=== PATIENT | female | born 1960 | race Caucasian/White ===

== ENCOUNTER 2018-05-01 08:56 | Observation (INO) | payer OTHER ==
[~2018-05-01] VITALS: Ht 157.5 cm; Wt 117.7 kg
[~2018-05-01 08:56] MED LIST: ALBUTEROL; ALBUTEROL NEBULIZER; AZO STANDARD; B-COMPLEX PO; CINNAMON500 MG PO; DITROPAN XL5 MG PO; GABAPENTIN300 MG PO; GLIPIZIDE5 MG PO; IMITREX INJ; KETOROLAC TROME10 MG; KETOROLAC TROME10 MG PO; LEVAQUIN500 MG PO; LEVOTHYROXINE112 MCG PO; LOSARTAN POTASS25 MG PO; NEXIUM40 MG PO; NORCO 10-325 T1 EACH PO; NORCO 5-325 TA1 EACH PO; NP THYROID90 MG PO; OMEPRAZOLE40 MG PO; ONDANSETRON HCL4 MG PO; PERCOCET PO; RANITIDINE PO; SENSIPAR30 MG PO; STOOL SOFTENER; SUDAFED; SUMATRIPTAN SUC25 MG PO; SUPER B COMPLE150 MG PO; SYNTHROID50 MCG PO; TIZANIDINE HCL4 M1 PO; TYLENOL # 31 EA PO; TYLENOL WITH C1 EACH PO; ULTRACET TABLE1 EACH PO; VITAMIN B 12 PO; VITAMIN D1000 UNI1 PO; VITAMIN D250000 UNIT PO; VITAMIN D31000 UNI1 PO; ZOFRAN ODT4 MG; [UNRECOGNIZED DRUG - OTHER]; [UNRECOGNIZED DRUG - OTHER] PO
[2018-05-01 10:23] LABS: BASOPHILS % 0.4 % (0.0-1.0); EOSINOPHILS % 0.2 % (0.0-6.0); HEMATOCRIT 44.5 % (34.2-44.1); HEMOGLOBIN 14.7 g/dL (12.0-16.0); LYMPHOCYTES # (AUTO) 0.6 (1.0-3.2); LYMPHOCYTES % 5.4 % (18.0-39.1); MEAN CORPUSCULAR HEMOGLOBIN 29.1 pg (28-32); MEAN CORPUSCULAR VOLUME 88.1 fL (81-99); MONOCYTES # (AUTO) 1.3 (0.2-0.8); MONOCYTES % 11.9 % (4.4-11.3); NEUTROPHILS # (AUTO) 9.2 (2.1-6.9); NEUTROPHILS % 81.7 % (38.7-80.0); PLATELET COUNT 114 x10e3/uL (140-360); RED BLOOD COUNT 5.05 x10e6/uL (3.6-5.1); RED CELL DISTRIBUTION WIDTH 13.5 % (11.7-14.4)
[2018-05-01 10:34] LABS: ALBUMIN 3.8 g/dL (3.5-5.0); ANION GAP 17.2 mmol/L (8-16); CALCIUM 10.2 mg/dL (8.4-10.2); CREATININE, SERUM 0.96 mg/dL (0.57-1.11); POTASSIUM 4.2 mmol/L (3.5-5.1)
[2018-05-01 11:14] LABS: BILIRUBIN,URINE NEGATIVE (NEGATIVE); CLARITY,URINE SL CLOUDY (CLEAR); COLOR,URINE ORANGE (YELLOW); KETONES,URINE 1+ (NEGATIVE); LEUKOCYTE ESTERASE ,URINE 2+ (NEGATIVE); NITRITE,URINE POSITIVE (NEGATIVE); PROTEIN,URINE DIPSTICK 2+ (NEGATIVE); URINE UROBILINOGEN 1 mg/dL (0.2 - 1)
[2018-05-01 11:30] LABS: BACTERIA,URINE MANY /HPF; RBC,URINE 21-50 /HPF (0-5); WBC,URINE (MAN) >50 /HPF (0-5)
[2018-05-01] MEDS ORDERED: CEFTRIAXONE SOD 1 GM VIAL IV SCH ×2 (12:00→13:15)
[2018-05-01] MEDS ORDERED: DIPHENHYDRAMINE HCL INJ 50 MG/ML VIAL IV ONE (12:00)
[2018-05-01] MEDS ORDERED: MORPHINE SULFATE 2 MG/ML SYR IV STA (12:36)
[2018-05-01] MEDS ORDERED: MORPHINE SULFATE 2 MG/ML SYR ONE (12:39)
[2018-05-01] MEDS ORDERED: ACETAMINOPHEN 325 MG TAB PO ONE (12:45)
[2018-05-01] MEDS ORDERED: METOCLOPRAMIDE HCL 10 MG/2ML VIAL IV ONE (12:45)
[2018-05-01] MEDS: SODIUM CHLORIDE 0.9% 1000ML 1,000 ML IV SCH ×2 (12:46→22:17)
[2018-05-01] MEDS ORDERED: KETOROLAC TROMETHAMINE 30 MG/ML VIAL IV STA (12:49)
--- NOTE | 2018-05-01 12:51 | Diagnostic Imaging Report ---
EXAM: CT ABDOMEN AND PELVIS without IV CONTRAST DATE: 05/01/2018 10:14 AM Time stamp on Exam: 10:49 AM INDICATION: Bladder infection with severe flank pain and a history of renal stone COMPARISON: None TECHNIQUE: The abdomen and pelvis were scanned using a multidetector helical scanner. Coronal and sagittal reformations were obtained. Routine protocol performed. Low-dose protocol was utilized. IV Contrast: None Oral Contrast: None Radiation Dose: Total DLP 860.47 mGy*cm Estimated effective dose: DLP x 0.015 x size factor FINDINGS: LOWER THORAX: No consolidations LIVER: No masses BILIARY: The gallbladder is absent with clips in the fossa. No ductal dilatation. SPLEEN: No masses PANCREAS: No masses ADRENALS: No nodules KIDNEYS: Mild right perinephric fat stranding and prominent right collecting system. There is a tiny hyperdensity situated in the distal right ureter (axial series #2, image 78) compatible with a tiny stone. GI TRACT: No distention, wall thickening or evidence of obstruction. VESSELS: Minimal vascular calcification. PERITONEUM/RETROPERITONEUM: No free air or fluid LYMPH NODES: No lymphadenopathy REPRODUCTIVE ORGANS: Unremarkable BLADDER: Unremarkable SOFT TISSUES: Unremarkable BONES: No suspicious bone lesions. Irregularity of the left iliac wing likely represents posttraumatic changes. Mild L1-L2 joint space narrowing with adjacent bridging osteophyte. IMPRESSION: 1. Mild right perinephric fat stranding with prominent proximal ureter and collecting system. 2. Tiny distal right UVJ stone. Signed by: Dr. Nitesh Diop DO on 05/01/2018 12:47 PM
[2018-05-01] MEDS ORDERED: ONDANSETRON HCL INJ 2 MG/ML VIAL IV PRN (13:15)
[2018-05-01] MEDS ORDERED: MORPHINE SULFATE 2 MG/ML SYR IV PRN (13:15)
[2018-05-01] MEDS ORDERED: MORPHINE SULFATE INJ 4 MG/ML INJ IV PRN (13:15)
[2018-05-01 13:28] LABS: CREATINE KINASE 50 IU/L (29-168)
[2018-05-01 15:50] VITALS: BP 129/61
[2018-05-01 16:24] VITALS: BP 129/61
[2018-05-01 16:27] VITALS: BP 129/61
[2018-05-01] MEDS ORDERED: PERCOCET 5-3251 EACH PO (19:35)
[2018-05-01] MEDS ORDERED: SUMATRIPTAN SUCCINATE 25 MG TAB PO PRN (20:15)
[2018-05-01 20:34] LABS: CREATINE KINASE 60 IU/L (29-168)
[2018-05-01] MEDS: KETOROLAC TROMETHAMINE 30 MG/ML VIAL IV PRN (20:43)
[2018-05-01 21:54] VITALS: BP 114/55
[2018-05-01] MEDS: CEFTRIAXONE SOD 1 GM VIAL IV SCH (22:00)
[2018-05-01] MEDS: OXYCODONE/ACETAMINOPHEN 5-325 1 EACH TABLET PO SCH (22:16)
[2018-05-01] MEDS: TIZANIDINE HCL 4 MG TAB PO SCH (22:16)
[2018-05-01] MEDS: GABAPENTIN 300 MG CAP PO SCH (22:16)
[2018-05-02] VITALS: BP 92/50
[2018-05-02] MEDS ORDERED: THYROID 60 MG TAB PO SCH (06:00)
[2018-05-02 06:01] LABS: BASOPHILS % 0.3 % (0.0-1.0); EOSINOPHILS # (AUTO) 0.1 (0.0-0.4); EOSINOPHILS % 1.1 % (0.0-6.0); HEMATOCRIT 37.8 % (34.2-44.1); HEMOGLOBIN 12.1 g/dL (12.0-16.0); LYMPHOCYTES # (AUTO) 0.8 (1.0-3.2); LYMPHOCYTES % 12.7 % (18.0-39.1); MEAN CORPUSCULAR HEMOGLOBIN 29.2 pg (28-32); MEAN CORPUSCULAR VOLUME 91.1 fL (81-99); MONOCYTES % 16.2 % (4.4-11.3); NEUTROPHILS # (AUTO) 4.4 (2.1-6.9); NEUTROPHILS % 69.2 % (38.7-80.0); PLATELET COUNT 99 x10e3/uL (140-360); RED BLOOD COUNT 4.15 x10e6/uL (3.6-5.1); RED CELL DISTRIBUTION WIDTH 13.4 % (11.7-14.4)
[2018-05-02 06:32] LABS: ALBUMIN 2.9 g/dL (3.5-5.0); ALBUMIN/GLOBULIN RATIO 0.9 (0.8-2.0); ANION GAP 13.2 mmol/L (8-16); CALCIUM 9.1 mg/dL (8.4-10.2); POTASSIUM 4.2 mmol/L (3.5-5.1)
[2018-05-02] MEDS: LEVOTHYROXINE SODIUM 50 MCG TAB PO SCH (06:42)
[2018-05-02 07:20] LABS: CREATINE KINASE 46 IU/L (29-168)
[2018-05-02] MEDS: SODIUM CHLORIDE 0.9% 1000ML 1,000 ML IV SCH ×3 (07:50→22:40)
[2018-05-02 08:23] VITALS: BP 141/66
[2018-05-02] MEDS: NON-FORMULARY MEDICATION (Thyroid,Pork (Np Thyroid) 90 MG) PO SCH (09:00)
[2018-05-02] MEDS: VIT C NO 4 PO SCH (09:00)
[2018-05-02] MEDS: VITAMIN B COMPLEX PO SCH (09:00)
[2018-05-02] MEDS: NON-FORMULARY MEDICATION (Cinnamon Bark (Cinnamon) 1,000 MG) PO SCH (09:00)
[2018-05-02 09:45] VITALS: BP 114/66
[2018-05-02] MEDS: TIZANIDINE HCL 4 MG TAB PO SCH ×2 (09:45→22:30)
[2018-05-02] MEDS: LOSARTAN POTASSIUM 25 MG TAB PO SCH (09:45)
[2018-05-02] MEDS: CINACALCET 30 MG TAB PO SCH (09:45)
[2018-05-02] MEDS: OXYCODONE/ACETAMINOPHEN 5-325 1 EACH TABLET PO SCH ×2 (09:45→22:30)
[2018-05-02] MEDS: CHOLECALCIFEROL 1,000 UNIT TAB PO SCH (09:45)
[2018-05-02] MEDS: OXYBUTYNIN CHLORIDE XL 5 MG TAB PO SCH (09:45)
[2018-05-02] MEDS: GABAPENTIN 300 MG CAP PO SCH ×3 (09:45→22:30)
[2018-05-02] MEDS: CEFTRIAXONE SOD 1 GM VIAL IV SCH ×2 (09:45→22:30)
[2018-05-02] MEDS: PANTOPRAZOLE SOD 40 MG TABEC PO SCH (09:45)
[2018-05-02] MEDS: GLIPIZIDE 5 MG TAB PO SCH (09:45)
--- NOTE | 2018-05-02 10:09 | History and Physical ---
PCP: Jon Ramírez MD CHIEF COMPLAINT: Right flank pain. HISTORY OF PRESENT ILLNESS: Patient is a 58-year-old female, morbidly obese, with recurrent stones, complaining of right flank pain. CT scan show mild right perinephric fat stranding with a prominent proximal ureter and likely just a tiny distal right UVJ stone. The patient is otherwise stable. Pain is better controlled. The patient is not having any fever. She had slightly elevated WBC at 11. Urinalysis showed 2+ leukocyte esterase, many bacteria. PAST MEDICAL HISTORY 1. Recurrent kidney stone with previous ureteral stent. 2. Chronic osteoarthritic pain. 3. Chronic headaches, migraine type. 4. Diabetes, type 2. 5. Diabetic neuropathy. 6. Hypertension. 7. Hypothyroidism. PAST SURGICAL HISTORY: Cholecystectomy. Multiple kidney stone management with stent previously. SOCIAL HISTORY: Patient does not smoke or use alcohol. No recreational drugs. ALLERGIES: PREGABALIN, MELOXICAM, PENICILLIN. REVIEW OF SYSTEMS: Right flank pain improving. Headache, improved. PHYSICAL EXAMINATION VITAL SIGNS: Temperature is 98. Blood pressure 141/66. Pulse rate 87. Respirations 20. GENERAL: The patient is not in acute distress. She is awake. HEENT: Normocephalic. Atraumatic. Anicteric. NECK: Supple grossly. PULMONARY: Diminished breath sounds without any wheezing or rales. CARDIOVASCULAR: S1 and S2. Regular rate and rhythm. ABDOMEN: Soft, obese. EXTREMITIES: No cyanosis or edema. NEUROLOGIC: No gross focal deficit. LABORATORY: Sodium 137, potassium 4.2, chloride 106, bicarb 22, BUN 20, creatinine 1.6. Glucose 121. WBC 6.4, hemoglobin 12, hematocrit 37.8, and platelets 99. IMPRESSION 1. Right kidney stone with mild hydronephrosis. 2. Urinary tract infection most likely from stone. PLAN: Continue with antibiotics. Pain management. Stone management if needed. We will monitor the patient closely. Job#: [id number]
--- NOTE | 2018-05-02 11:19 | Diagnostic Imaging Report ---
Exam: KUB. Clinical History: Nephrolithiasis. Comparison: CT scan 05/01/2018 Findings: Frontal view of the abdomen demonstrates a nonobstructive bowel gas pattern with moderate retained stool. No urinary tract calcifications are seen. No acute bone abnormality. Impression: No urinary tract calcifications are seen. Signed by: Dr. Keenan Hernandes M.D. on 05/02/2018 11:16 AM
[2018-05-02 12:01] VITALS: BP 99/52
[2018-05-02 16:33] VITALS: BP 94/52
[2018-05-02 20:00] VITALS: BP 113/53
[2018-05-02] MEDS: KETOROLAC TROMETHAMINE 30 MG/ML VIAL IV PRN (20:13)
[2018-05-03] VITALS (8 sets, daily range): BP systolic 90–136; BP diastolic 53–63
[2018-05-03] MEDS ORDERED: ACETAMINOPHEN 325 MG TAB PO PRN (00:30)
[2018-05-03] MEDS: SODIUM CHLORIDE 0.9% 1000ML 1,000 ML IV SCH ×2 (04:00→09:07)
[2018-05-03 05:58] LABS: BASOPHILS % 0.3 % (0.0-1.0); EOSINOPHILS # (AUTO) 0.1 (0.0-0.4); EOSINOPHILS % 1.7 % (0.0-6.0); HEMOGLOBIN 11.9 g/dL (12.0-16.0); LYMPHOCYTES # (AUTO) 1.3 (1.0-3.2); LYMPHOCYTES % 21.4 % (18.0-39.1); MEAN CORPUSCULAR HEMOGLOBIN 28.5 pg (28-32); MEAN CORPUSCULAR HGB CONC 31.3 g/dL (31-35); MEAN CORPUSCULAR VOLUME 90.9 fL (81-99); MONOCYTES # (AUTO) 1.1 (0.2-0.8); NEUTROPHILS # (AUTO) 3.4 (2.1-6.9); NEUTROPHILS % 58.3 % (38.7-80.0); PLATELET COUNT 103 x10e3/uL (140-360); RED BLOOD COUNT 4.18 x10e6/uL (3.6-5.1); RED CELL DISTRIBUTION WIDTH 13.3 % (11.7-14.4)
[2018-05-03] MEDS: LEVOTHYROXINE SODIUM 50 MCG TAB PO SCH (06:19)
[2018-05-03 06:22] LABS: ANION GAP 14.8 mmol/L (8-16); BLOOD UREA NITROGEN 15 mg/dL (7-26); BUN/CREATININE RATIO 18 (6-25); CALCIUM 8.3 mg/dL (8.4-10.2); CARBON DIOXIDE 21 mmol/L (22-29); CHLORIDE 110 mmol/L (98-107); CREATININE, SERUM 0.83 mg/dL (0.57-1.11); EST GLOMERULAR FILTRATION RATE > 60 ML/MIN (60-); GLUCOSE 86 mg/dL (74-118); POTASSIUM 4.8 mmol/L (3.5-5.1); SODIUM 141 mmol/L (136-145)
[2018-05-03] MEDS: KETOROLAC TROMETHAMINE 30 MG/ML VIAL IV PRN (07:34)
[2018-05-03] MEDS: VIT C NO 4 PO SCH (09:00)
[2018-05-03] MEDS: NON-FORMULARY MEDICATION (Thyroid,Pork (Np Thyroid) 90 MG) PO SCH (09:00)
[2018-05-03] MEDS: VITAMIN B COMPLEX PO SCH (09:00)
[2018-05-03] MEDS: NON-FORMULARY MEDICATION (Cinnamon Bark (Cinnamon) 1,000 MG) PO SCH (09:00)
[2018-05-03] MEDS: PANTOPRAZOLE SOD 40 MG TABEC PO SCH (09:07)
[2018-05-03] MEDS: TIZANIDINE HCL 4 MG TAB PO SCH ×2 (09:07→20:40)
[2018-05-03] MEDS: OXYCODONE/ACETAMINOPHEN 5-325 1 EACH TABLET PO SCH ×2 (09:07→20:39)
[2018-05-03] MEDS: GLIPIZIDE 5 MG TAB PO SCH (09:07)
[2018-05-03] MEDS: GABAPENTIN 300 MG CAP PO SCH ×3 (09:08→20:39)
[2018-05-03] MEDS: CEFTRIAXONE SOD 1 GM VIAL IV SCH ×2 (09:08→20:39)
[2018-05-03] MEDS: OXYBUTYNIN CHLORIDE XL 5 MG TAB PO SCH (09:08)
[2018-05-03] MEDS: CINACALCET 30 MG TAB PO SCH (09:08)
[2018-05-03] MEDS: CHOLECALCIFEROL 1,000 UNIT TAB PO SCH (09:09)
[2018-05-03] MEDS: LOSARTAN POTASSIUM 25 MG TAB PO SCH (09:09)
[2018-05-03] MEDS ORDERED: CIPRO500 MG PO (10:23)
[2018-05-03] MEDS ORDERED: MOBIC15 MG PO (10:24)
[2018-05-03] MEDS ORDERED: ZOFRAN ODT4 MG PO (10:25)
--- NOTE | 2018-05-03 15:34 | Discharge Summary ---
PRIMARY CARE PHYSICIAN: Jon Ramírez MD. DISTRICT OPERATIONS MANAGER: Dr. Elvin Trinidad. FINAL DIAGNOSES: 1. Right renal colic associated with mild right perinephric fat standing with prominent proximal ureter and system with a tiny distal right UVJ stone. Repeated KUB next day showed no stone. 2. Urinary tract infection associated with gram-negative bacilli. Blood cultures are negative. SUMMARY: Patient is a 58-year-old female. No urinary symptoms as far as dysuria or burning on urinating, but the patient's urinalysis showed that she had a urinary tract infection. She had a right renal colic flank pain, but baseline. Patient has chronic lower back pain. She is on opioid at home. She came in with pain. She had a slight low-grade temperature which is resolved now. The urine culture grew out gram-negative bacilli. The patient is otherwise stable. She is comfortable. The pain has significantly subsided. No fever now. She patient is stable. The patient should be able to go home today with Cipro 500 mg twice a day for 7 days. Mobic 7.5 mg b.i.d. p.r.n. for pain and Zofran ODT for nausea or vomiting. The patient will her resume home medications. The patient should follow up with Dr. Elvin Trinidad next week and will continue to monitor the patient closely as an outpatient per Dr. Trinidad. The patient is stable for discharge home today. Job#: [id number]
[2018-05-04] VITALS (8 sets, daily range): BP systolic 89–156; BP diastolic 43–71
[2018-05-04 05:53] LABS: BASOPHILS % 0.6 % (0.0-1.0); EOSINOPHILS # (AUTO) 0.1 (0.0-0.4); EOSINOPHILS % 1.8 % (0.0-6.0); HEMATOCRIT 35.4 % (34.2-44.1); HEMOGLOBIN 11.5 g/dL (12.0-16.0); LYMPHOCYTES # (AUTO) 1.1 (1.0-3.2); LYMPHOCYTES % 22.3 % (18.0-39.1); MEAN CORPUSCULAR HEMOGLOBIN 28.6 pg (28-32); MEAN CORPUSCULAR HGB CONC 32.5 g/dL (31-35); MEAN CORPUSCULAR VOLUME 88.1 fL (81-99); MONOCYTES # (AUTO) 0.8 (0.2-0.8); NEUTROPHILS # (AUTO) 2.9 (2.1-6.9); NEUTROPHILS % 59.1 % (38.7-80.0); PLATELET COUNT 115 x10e3/uL (140-360); RED BLOOD COUNT 4.02 x10e6/uL (3.6-5.1); RED CELL DISTRIBUTION WIDTH 13.1 % (11.7-14.4)
[2018-05-04 06:15] LABS: ANION GAP 16.8 mmol/L (8-16); BLOOD UREA NITROGEN 13 mg/dL (7-26); BUN/CREATININE RATIO 16 (6-25); CALCIUM 8.3 mg/dL (8.4-10.2); CARBON DIOXIDE 22 mmol/L (22-29); CHLORIDE 108 mmol/L (98-107); CREATININE, SERUM 0.79 mg/dL (0.57-1.11); EST GLOMERULAR FILTRATION RATE > 60 ML/MIN (60-); GLUCOSE 98 mg/dL (74-118); POTASSIUM 3.8 mmol/L (3.5-5.1); SODIUM 143 mmol/L (136-145)
[2018-05-04] MEDS: LEVOTHYROXINE SODIUM 50 MCG TAB PO SCH (06:24)
[2018-05-04] MEDS: VITAMIN B COMPLEX PO SCH (09:00)
[2018-05-04] MEDS: NON-FORMULARY MEDICATION (Thyroid,Pork (Np Thyroid) 90 MG) PO SCH (09:00)
[2018-05-04] MEDS: VIT C NO 4 PO SCH (09:00)
[2018-05-04] MEDS: NON-FORMULARY MEDICATION (Cinnamon Bark (Cinnamon) 1,000 MG) PO SCH (09:00)
[2018-05-04] MEDS: CHOLECALCIFEROL 1,000 UNIT TAB PO SCH (09:18)
[2018-05-04] MEDS: TIZANIDINE HCL 4 MG TAB PO SCH ×2 (09:19→20:45)
[2018-05-04] MEDS: OXYBUTYNIN CHLORIDE XL 5 MG TAB PO SCH (09:19)
[2018-05-04] MEDS: PANTOPRAZOLE SOD 40 MG TABEC PO SCH (09:19)
[2018-05-04] MEDS: GABAPENTIN 300 MG CAP PO SCH ×3 (09:19→20:44)
[2018-05-04] MEDS: GLIPIZIDE 5 MG TAB PO SCH (09:19)
[2018-05-04] MEDS: CINACALCET 30 MG TAB PO SCH (09:19)
[2018-05-04] MEDS: OXYCODONE/ACETAMINOPHEN 5-325 1 EACH TABLET PO SCH ×2 (09:20→20:45)
[2018-05-04] MEDS: CEFTRIAXONE SOD 1 GM VIAL IV SCH ×2 (09:20→20:44)
[2018-05-04] MEDS: LOSARTAN POTASSIUM 25 MG TAB PO SCH (09:21)
[2018-05-05] VITALS: BP 102/52
[2018-05-05] MEDS: KETOROLAC TROMETHAMINE 30 MG/ML VIAL IV PRN (00:02)
[2018-05-05 04:00] VITALS: BP 146/67
[2018-05-05] MEDS: LEVOTHYROXINE SODIUM 50 MCG TAB PO SCH (06:03)
[2018-05-05] MEDS: CEFTRIAXONE SOD 1 GM VIAL IV SCH (08:46)
[2018-05-05] MEDS: GLIPIZIDE 5 MG TAB PO SCH (08:46)
[2018-05-05] MEDS: VIT C NO 4 PO SCH (08:47)
[2018-05-05] MEDS: VITAMIN B COMPLEX PO SCH (08:47)
[2018-05-05] MEDS: NON-FORMULARY MEDICATION (Thyroid,Pork (Np Thyroid) 90 MG) PO SCH (08:47)
[2018-05-05] MEDS: NON-FORMULARY MEDICATION (Cinnamon Bark (Cinnamon) 1,000 MG) PO SCH (08:47)
[2018-05-05 08:48] VITALS: BP 149/70
[2018-05-05] MEDS: LOSARTAN POTASSIUM 25 MG TAB PO SCH (08:51)
[2018-05-05] MEDS: PANTOPRAZOLE SOD 40 MG TABEC PO SCH (08:51)
[2018-05-05] MEDS: OXYBUTYNIN CHLORIDE XL 5 MG TAB PO SCH (08:51)
[2018-05-05] MEDS: GABAPENTIN 300 MG CAP PO SCH ×2 (08:51→15:50)
[2018-05-05] MEDS: TIZANIDINE HCL 4 MG TAB PO SCH (08:51)
[2018-05-05] MEDS: CINACALCET 30 MG TAB PO SCH (08:51)
[2018-05-05] MEDS: CHOLECALCIFEROL 1,000 UNIT TAB PO SCH (08:51)
[2018-05-05] MEDS: OXYCODONE/ACETAMINOPHEN 5-325 1 EACH TABLET PO SCH (08:52)
[2018-05-05 10:51] VITALS: BP 149/70
[2018-05-05] MEDS: FLUTICASONE PROPIONATE NASAL SPRAY NS SCH ×2 (11:15→17:00)
[2018-05-05] MEDS ORDERED: LORATADINE 10 MG TAB PO SCH (11:15)
[2018-05-05 12:32] VITALS: BP 120/56
[2018-05-05] MEDS ORDERED: ACYCLOVIR 200 MG/5 ML SUSP PO SCH (14:00)
[2018-05-05] MEDS ORDERED: CLARITIN-D 241 EACH PO (15:31)
[2018-05-05] MEDS ORDERED: FLUTICASONE PRO60 ML NS (15:35)
[2018-05-05] MEDS ORDERED: ACYCLOVIR800 MG PO (15:36)
[2018-05-05] MEDS ORDERED: CEFUROXIME500 MG PO (15:38)
--- OUTSIDE RECORDS SUMMARY | 2018-05-07 12:33 | XMS REPORT | Clinical Summary ---
Author Author [facility] Organization [facility] Address Unknown Phone Unavailable Care Team Providers Care Granite Sandblaster Apprentice Name Role Phone System, Provider Not In MD PCP Unavailable Allergies Not on File Current Medications Not on file Active Problems Not on file Social History Tobacco Use Types Packs/Day Years Used Date Never Assessed Sex Assigned at Date Recorded Not on file Last Filed Vital Signs Not on file Plan of Treatment Health Maintenance Due Date Last Done Comments CERVICAL CANCER SCREENING 1981 BREAST CANCER SCREENING 2010 COLON CANCER SCREENING 2010 SHINGRIX VACCINE (#1) 2010 INFLUENZA VACCINE 02/20/2018 Results Not on fileafter 04/30/2017 Insurance Payer Benefit Subscriber ID Type Phone Address Plan / Group [employer] xxxxxxxxx [facility] Home:
--- OUTSIDE RECORDS SUMMARY | 2018-05-07 12:34 | XMS REPORT | Continuity of Care Document ---
Author Author Anette serg [facility] Interface Address Unknown Phone Unavailable Problems Problem Status Onset Date Classification Date Reported Comments Source Trigger finger, left ring finger Active Problem 01/25/2018 Saman Cloud Dry mouth, unspecified Active Problem 01/25/2018 Saman Cloud Osteoarthritis involving multiple joints on both sides of body Active Problem 01/25/2018 Saman Cloud Abnormal serum MICHEAL level Active Problem 01/25/2018 Saman Cloud Polyarthralgia Active Problem 01/25/2018 Saman Cloud Knee pain Active Problem 01/25/2018 Saman Cloud Depression Active Problem 01/25/2018 Saman Cloud Osteoarthritis Active Diagnosis 01/25/2018 Saman Cloud Inflammatory arthritis Active Diagnosis 01/25/2018 Saman Cloud Encounter for long-term drug use Active Diagnosis 01/25/2018 Saman Cloud Medications Medication Details Route Status Patient Instructions Ordering Provider Order Date Source Leflunomide 1 tablet Orally Active 10 MG Orally Once a day Paddy 01/22/2018 Saman Cloud Hydroxychloroquine Sulfate 1 tablet with food or milk Orally Active 200 MG Orally bid Paddy 10/23/2017 Saman Cloud GlipiZIDE 1 tablet Orally Active 5 MG Orally Once a day Paddy Saman Cloud Omeprazole 1 capsule Orally Active 40 MG Orally Once a day Paddy Saman Cloud Pioglitazone HCl 1 tablet Orally Active 15 MG Orally Once a day Paddy Saman Cloud Gabapentin 1 capsule Orally Active 300 MG Orally Three times a day Paddy Saman Cloud Cinnamon as directed Orally Active 1000 MG Orally Paddy Saman Cloud Ketorolac Tromethamine 1 tablet as needed Orally Active 10 MG Orally PRN Paddy Saman Cloud Vitamin D as directed Orally Active 2000 UNIT Orally Paddy Saman Cloud Potassium & Magnesium Aspartat 1 capsule with a meal Orally Active 250-250 MG Orally Once a day Paddy Saman Cloud Percocet 1 tablet as needed Orally Active 10-325 MG Orally every 6 hrs Paddy Saman Cloud Tizanidine HCl 1 tablet as needed Orally Active 4 MG Orally every 8 hrs Paddy Saman Cloud Sumatriptan 1 tablet PRN Nasally Active 5 MG Nasally Once a day Paddy Saman Cloud Dulcolax 1 tablet as needed Orally Active 5 MG Orally Once a day Paddy Saman Cloud Losartan Potassium 1 tablet Orally Active 50 MG Orally Once a day Paddy Saman Cloud Synthroid 1 tablet on an empty stomach in the morning Orally Active 25 MCG Orally Once a day Paddy Saman Cloud COMPUTER SYSTEMS TECHNICIAN Thyroid 1 tablet Orally Active 90 MG Orally Once a day Paddy Saman Cloud Vitamin B12 1 tablet Orally Active 100 MCG Orally Once a day Paddy Saman Cloud Pravastatin Sodium 1 tablet Orally Active 40 MG Orally Once a day Paddy Saman Cloud Allergies, Adverse Reactions, Alerts Substance Category Reaction Severity Reaction type Status Date Reported Comments Source penicillin Adverse Reaction hives Adverse Reaction Active 01/22/2018 Saman Cloud Meloxicam Adverse Reaction itching Adverse Reaction Active 01/22/2018 Saman Cloud Lyrica Adverse Reaction drowsiness Adverse Reaction Active 01/22/2018 Saman Cloud Microbid Adverse Reaction rash Adverse Reaction Active 01/22/2018 Saman Cloud Hydroxychloroquine Adverse Reaction rash Adverse Reaction Active 01/22/2018 Saman Cloud Immunizations Immunization Date Given Site Status Last Updated Comments Source Results Order Name Results Value Reference Range Date Interpretation Comments Source Vital Signs Vital Sign Value Date Comments Source Weight 247 01/22/2018 Saman Villaer Height 60 01/22/2018 Saman Cloud Temperature Oral (F) 97.3 F 01/22/2018 Saman Cloud Heart Rate 76 01/22/2018 Saman Cloud Diastolic (mm Hg) 74 01/22/2018 Saman Cloud Systolic (mm Hg) 126 01/22/2018 Saman Cloud Weight 249 10/23/2017 Saman Cloud Height 60 10/23/2017 Saman Cloud Temperature Oral (F) 97.7 F 10/23/2017 Saman Cloud Heart Rate 72 10/23/2017 Saman Cloud Diastolic (mm Hg) 78 10/23/2017 Saman Cloud Systolic (mm Hg) 120 10/23/2017 Saman Cloud Weight 242.7 07/25/2017 Saman Cloud Height 61 07/25/2017 Saman Cloud Temperature Oral (F) 98.7 F 07/25/2017 Saman Cloud Heart Rate 72 07/25/2017 Saman Cloud Diastolic (mm Hg) 70 07/25/2017 Saman Cloud Systolic (mm Hg) 120 07/25/2017 Saman Cloud Weight 236 05/31/2017 Saman Cloud Height 59 05/31/2017 Saman Cloud Temperature Oral (F) 98.2 F 05/31/2017 Saman Cloud Heart Rate 76 05/31/2017 Saman Cloud Diastolic (mm Hg) 60 05/31/2017 Saman Cloud Systolic (mm Hg) 100 05/31/2017 Saman Cloud Weight 230.8 05/17/2017 Saman Cloud Height 60 05/17/2017 Saman Cloud Temperature Oral (F) 98.0 F 05/17/2017 Saman Cloud Heart Rate 80 05/17/2017 Saman Cloud Diastolic (mm Hg) 70 05/17/2017 Saman Cloud Systolic (mm Hg) 128 05/17/2017 Saman Cloud Encounters Location Location Details Encounter Type Encounter Number Reason For Visit Attending Provider ADM Date DC Date Status Source Procedures Procedure Code Date Perfomer Comments Source
--- OUTSIDE RECORDS SUMMARY | 2018-05-07 12:34 | XMS REPORT ---
Author Rocky Donahue Organization [employer] Address Unknown Phone Unavailable Care Team Providers Care Curtain Cutter Name Role Phone Rocky Cloud CP Unavailable Allergies No Known Allergies Problems Problem Type Condition Code Onset Dates Condition Status Problem Polyarthralgia M25.50 Active Problem Osteoarthritis involving multiple joints on both sides of body M15.9 Active Problem Trigger finger, left ring finger M65.342 Active Problem Osteoarthritis (arthritis due to wear and tear of joints) M19.90 Active Problem Depression F32.9 Active Problem Abnormal serum MICHEAL level R74.8 Active Problem Dry mouth, unspecified R68.2 Active Problem Knee pain M25.569 Active Medications No Known Medications Results No Known Results Summary Purpose [employer] Submission
--- OUTSIDE RECORDS SUMMARY | 2018-05-07 12:34 | XMS REPORT ---
Author Rocky Donahue Organization [employer] Address Unknown Phone Unavailable Care Team Providers Care Preparing Box Tender Name Role Phone Rocky Cloud CP Unavailable Allergies No Known Allergies Problems Problem Type Condition Code Onset Dates Condition Status Problem Trigger finger, left ring finger M65.342 Active Problem Dry mouth, unspecified R68.2 Active Problem Osteoarthritis involving multiple joints on both sides of body M15.9 Active Problem Abnormal serum MICHEAL level R74.8 Active Problem Polyarthralgia M25.50 Active Problem Knee pain M25.569 Active Problem Depression F32.9 Active Medications No Known Medications Results No Known Results Summary Purpose [employer] Submission
--- OUTSIDE RECORDS SUMMARY | 2018-05-07 12:34 | XMS REPORT ---
Author Author Alyson Thomason [facility] [employer] Address Unknown Phone Unavailable Care Team Providers Care Sound Tester Name Role Phone Alyson Thomason CP Unavailable Allergies, Adverse Reactions, Alerts Substance Reaction Event Type penicillin hives Drug Allergy Meloxicam itching Drug Allergy Lyrica drowsiness Drug Allergy Problems Problem Type Condition Code Onset Dates Condition Status Assessment Abnormal serum MICHEAL level R74.8 Active Problem Polyarthralgia M25.50 Active Assessment Osteoarthritis involving multiple joints on both sides of body M15.9 Active Problem Osteoarthritis involving multiple joints on both sides of body M15.9 Active Problem Trigger finger, left ring finger M65.342 Active Problem Osteoarthritis (arthritis due to wear and tear of joints) M19.90 Active Problem Depression F32.9 Active Problem Abnormal serum MICHEAL level R74.8 Active Problem Dry mouth, unspecified R68.2 Active Problem Knee pain M25.569 Active Medications Medication Code System Code Instructions Start Date End Date Status Dosage Potassium & Magnesium Aspartat [facility] 95496642826 250-250 MG Orally Once a day Active 1 capsule with a meal Losartan Potassium [facility] 67743468147 50 MG Orally Once a day Active [address] [facility] 08813854150 100 MCG Orally Once a day Active 1 tablet [employer]ANSIT [employer] Thyroid [facility] 15288922918 90 MG Orally Once a day Active [address] [facility] 72502348700 10-325 MG Orally every 6 hrs Active 1 tablet as needed Vitamin D [facility] 32662175365 2000 UNIT Orally Active as directed Dulcolax ND 37092069104 5 MG Orally Once a day Active 1 tablet as needed Gabapentin ND 62725188512 300 MG Orally Three times a day Active 1 capsule GlipiZIDE ND 97877450318 5 MG Orally Once a day Active [address] [facility] 28729486292 5 MG Nasally Once a day Active [address]iz[address] [facility] 78886390903 4 MG Orally every 8 hrs Active 1 tablet as needed Synthroid [facility] 14326727667 25 MCG Orally Once a day Active 1 tablet on an empty stomach in the morning Omeprazole [facility] 41234217826 40 MG Orally Once a day Active [address] [facility] 26565387334 1000 MG Orally Active as directed Hydroxychloroquine Sulfate [facility] 54905380851 200 MG Orally bid October 23, 2017 Feb 20, 2018 Active 1 tablet with food or milk Ketorolac Tromethamine [facility] 23452364316 10 MG Orally PRN Active 1 tablet as needed Vital Signs Date/Time: October 23, 2017 BMI 48.62 Index Weight 249 lbs Height 60 in Temperature 97.7 F Cardiac Monitoring Heart Rate 72 /min Blood Pressure Diastolic 78 mm Hg Blood Pressure Systolic 120 mm Hg Results No Known Results Summary Purpose [employer] Submission
--- OUTSIDE RECORDS SUMMARY | 2018-05-07 12:34 | XMS REPORT ---
Author Author Alyson Thomason [facility] [employer] Address Unknown Phone Unavailable Care Team Providers Care Electrical Engineering Manager Name Role Phone Alyson Thomason CP Unavailable Allergies, Adverse Reactions, Alerts Substance Reaction Event Type penicillin hives Drug Allergy Meloxicam itching Drug Allergy Lyrica drowsiness Drug Allergy Problems Problem Type Condition Code Onset Dates Condition Status Assessment Trigger finger, left ring finger M65.342 Active Problem Trigger finger, left ring finger M65.342 Active Problem Dry mouth, unspecified R68.2 Active Problem Osteoarthritis involving multiple joints on both sides of body M15.9 Active Problem Abnormal serum MICHEAL level R74.8 Active Problem Polyarthralgia M25.50 Active Problem Knee pain M25.569 Active Problem Depression F32.9 Active Medications Medication Code System Code Instructions Start Date End Date Status Dosage GlipiZIDE [facility] 34478833720 5 MG Orally Once a day Active 1 tablet Omeprazole [facility] 35837408269 40 MG Orally Once a day Active 1 capsule Pioglitazone HCl [facility] 02308246713 15 MG Orally Once a day Active 1 tablet Gabapentin [facility] 44623971913 300 MG Orally Three times a day Active 1 capsule Cinnamon ND 85375502515 1000 MG Orally Active as directed Ketorolac Tromethamine [facility] 74042242902 10 MG Orally every 6 hrs Active 1 tablet as needed Vitamin D [facility] 14756490913 2000 UNIT Orally Active as directed Potassium & Magnesium Aspartat [facility] 97171323153 250-250 MG Orally Once a day Active 1 capsule with a meal Percocet [facility] 01908296656 10-325 MG Orally every 6 hrs Active 1 tablet as needed Tizanidine HCl [facility] 95998492263 4 MG Orally every 8 hrs Active 1 tablet as needed Sumatriptan [facility] 14621365941 5 MG/ACT Nasally Once a day Active 1 puff as needed one time Dulcolax [facility] 16350470903 5 MG Orally Once a day Active 1 tablet as needed Losartan Potassium NDC 76190515150 50 MG Orally Once a day Active 1 tablet Synthroid [facility] 04677521387 25 MCG Orally Once a day Active 1 tablet on an empty stomach in the morning PLASTICS HEAT WELDER Thyroid [facility] 74159443761 90 MG Orally Once a day Active 1 tablet Vitamin B12 [facility] 50121764830 100 MCG Orally Once a day Active 1 tablet Vital Signs Date/Time: May 31, 2017 BMI 47.66 Index Weight 236 lbs Height 59 in Temperature 98.2 F Cardiac Monitoring Heart Rate 76 /min Blood Pressure Diastolic 60 mm Hg Blood Pressure Systolic 100 mm Hg Results No Known Results Summary Purpose [employer] Submission
--- OUTSIDE RECORDS SUMMARY | 2018-05-07 12:34 | XMS REPORT ---
Author Rocky Donahue Organization [employer] Address Unknown Phone Unavailable Care Team Providers Care Executive Director Name Role Phone Rocky Cloud CP Unavailable [...]
--- OUTSIDE RECORDS SUMMARY | 2018-05-07 12:34 | XMS REPORT ---
Author Author Alyson Thomason [facility] [employer] Address Unknown Phone Unavailable Care Team Providers Care Business Intelligence Etl Developer Name Role Phone Alyson Thomason CP Unavailable Allergies, Adverse Reactions, Alerts Substance Reaction Event Type penicillin hives Drug Allergy Meloxicam itching Drug Allergy Lyrica drowsiness Drug Allergy Microbid rash Non Drug Allergy Hydroxychloroquine rash Non Drug Allergy Problems Problem Type Condition Code Onset Dates Condition Status Assessment Osteoarthritis (arthritis due to wear and tear of joints) M19.90 Active Problem Polyarthralgia M25.50 Active Assessment Inflammatory arthritis M19.90 Active Assessment Encounter for long-term (current) drug use Z79.899 Active Problem Osteoarthritis involving multiple joints on both sides of body M15.9 Active Problem Trigger finger, left ring finger M65.342 Active Problem Inflammatory arthritis M19.90 Active Problem Depression F32.9 Active Problem Abnormal serum MICHEAL level R74.8 Active Problem Dry mouth, unspecified R68.2 Active Problem Knee pain M25.569 Active Medications Medication Code System Code Instructions Start Date End Date Status Dosage Pravastatin Sodium [facility] 11192921976 40 MG Orally Once a day Active 1 tablet Percocet [facility] 57346071174 10-325 MG Orally every 6 hrs Active 1 tablet as needed Cinnamon ND 07051756818 1000 MG Orally Active as directed Omeprazole [facility] 72477337467 40 MG Orally Once a day Active 1 capsule Potassium & Magnesium Aspartat [facility] 39138920972 250-250 MG Orally Once a day Active 1 capsule with a meal Leflunomide ND 30213492478 10 MG Orally Once a day January 22, 2018 May 22, 2018 Active 1 tablet GlipiZIDE [facility] 23996086012 5 MG Orally Once a day Active 1 tablet Sumatriptan ND 24350114279 5 MG Nasally Once a day Active 1 tablet PRN Ketorolac Tromethamine ND 87079343304 10 MG Orally PRN Active 1 tablet as needed Synthroid [facility] 30124181771 25 MCG Orally Once a day Active 1 tablet on an empty stomach in the morning Losartan Potassium [facility] 85217355150 50 MG Orally Once a day Active 1 tablet Vitamin D [facility] 94874997346 2000 UNIT Orally Active as directed Vitamin B12 [facility] 61898359474 100 MCG Orally Once a day Active 1 tablet DENTIST Thyroid [facility] 81272984735 90 MG Orally Once a day Active 1 tablet Tizanidine HCl [facility] 02736072710 4 MG Orally every 8 hrs Active 1 tablet as needed Gabapentin [facility] 36304274883 300 MG Orally Three times a day Active 1 capsule Dulcolax [facility] 66474057846 5 MG Orally Once a day Active 1 tablet as needed Vital Signs Date/Time: January 22, 2018 BMI 48.23 Index Weight 247 lbs Height 60 in Temperature 97.3 F Cardiac Monitoring Heart Rate 76 /min Blood Pressure Diastolic 74 mm Hg Blood Pressure Systolic 126 mm Hg Results No Known Results Summary Purpose [employer] Submission
--- OUTSIDE RECORDS SUMMARY | 2018-05-07 12:34 | XMS REPORT ---
Author Author Alyson Thomason [facility] e[employer] Address Unknown Phone Unavailable Care Team Providers Care Supervisor Post Wave Name Role Phone Alyson Thomason CP Unavailable Allergies, Adverse Reactions, Alerts Substance Reaction Event Type penicillin hives Drug Allergy Meloxicam itching Drug Allergy Lyrica drowsiness Drug Allergy Problems Problem Type Condition Code Onset Dates Condition Status Assessment Trigger finger, left ring finger M65.342 Active Problem Polyarthralgia M25.50 Active Assessment Osteoarthritis (arthritis due to wear and tear of joints) M19.90 Active Problem Osteoarthritis involving multiple joints on [...] Instructions Start Date End Date Status Dosage Sumatriptan [facility] 31900350459 5 MG/ACT Nasally Once a day Active 1 puff as needed one time GR[employer] CLERK STOCKING Thyroid [facility] 84465355680 90 MG Orally Once a day Active 1 tablet Percocet [facility] 70647616027 10-325 MG Orally every 6 hrs Active 1 tablet as needed Potassium & Magnesium Aspartat [facility] 53975710054 250-250 MG Orally Once a day Active 1 capsule with a meal Tizanidine HCl [facility] 69825145841 4 MG Orally every 8 hrs Active 1 tablet as needed GlipiZIDE ND 71920387921 5 MG Orally Once a day Active 1 tablet Dulcolax [facility] 72782509971 5 MG Orally Once a day Active 1 tablet as needed Gabapentin ND 10950758006 300 MG Orally Three times a day Active 1 capsule Pioglitazone HCl [facility] 19479266370 15 MG Orally Once a day Active 1 tablet Cinnamon [facility] 34908458593 1000 MG Orally Active as directed Omeprazole [facility] 28686048666 40 MG Orally Once a day Active 1 capsule Vitamin D [facility] 76287978484 2000 UNIT Orally Active as directed Vitamin B12 [facility] 99068137456 100 MCG Orally Once a day Active 1 tablet Ketorolac Tromethamine [facility] 25677563783 10 MG Orally PRN Active 1 tablet as needed Synthroid [facility] 14029142783 25 MCG Orally Once a day Active 1 tablet on an empty stomach in the morning Losartan Potassium [facility] 90346401990 50 MG Orally Once a day Active 1 tablet Vital Signs Date/Time: Jul 25, 2017 BMI 45.85 Index Weight 242.7 lbs Height 61 in Temperature 98.7 F Cardiac Monitoring Heart Rate 72 /min Blood Pressure Diastolic 70 mm Hg Blood Pressure Systolic 120 mm Hg Results No Known Results Summary Purpose [employer]ClinicalWorks Submission
--- OUTSIDE RECORDS SUMMARY | 2018-05-07 12:34 | XMS REPORT ---
Author Rocky Donahue Organization [employer] Address Unknown Phone Unavailable Care Team Providers Care Home Care Associate Name Role Phone Rocky Cloud CP Unavailable [...]
--- OUTSIDE RECORDS SUMMARY | 2018-05-07 12:34 | XMS REPORT ---
Author Author Alyson Thomason [facility] e[employer] Address Unknown Phone Unavailable Care Team Providers Care Chimney Builder Name Role Phone Alyson Thomason CP Unavailable Allergies, Adverse Reactions, Alerts Substance Reaction Event Type penicillin hives Drug Allergy Meloxicam itching Drug Allergy Lyrica drowsiness Drug Allergy Problems Problem Type Condition Code Onset Dates Condition Status Assessment Trigger finger, left ring finger M65.342 Active Assessment Osteoarthritis involving multiple joints on [...] Instructions Start Date End Date Status Dosage Vitamin D [facility] 76485790250 2000 UNIT Orally Active as directed Gabapentin [facility] 43544253132 300 MG Orally Three times a day Active 1 capsule Sumatriptan [facility] 45113801275 5 MG/ACT Nasally Once a day Active 1 puff as needed one time Ketorolac Tromethamine [facility] 80649039956 10 MG Orally every 6 hrs Active 1 tablet as needed Pioglitazone HCl ND 72343694575 15 MG Orally Once a day Active 1 tablet Percocet [facility] 14087511632 10-325 MG Orally every 6 hrs Active 1 tablet as needed TOE TRIMMER Thyroid ND 09800556752 90 MG Orally Once a day Active 1 tablet Cinnamon [facility] 62344989644 1000 MG Orally Active as directed Dulcolax [facility] 32259475833 5 MG Orally Once a day Active 1 tablet as needed Vitamin B12 [facility] 26799895527 100 MCG Orally Once a day Active 1 tablet Potassium & Magnesium Aspartat [facility] 05321542858 250-250 MG Orally Once a day Active 1 capsule with a meal Omeprazole [facility] 24999760024 40 MG Orally Once a day Active 1 capsule GlipiZIDE [facility] 87687625742 5 MG Orally Once a day Active 1 tablet Tizanidine HCl [facility] 39004432942 4 MG Orally every 8 hrs Active 1 tablet as needed Losartan Potassium [facility] 61155418434 50 MG Orally Once a day Active 1 tablet Synthroid [facility] 64169326421 25 MCG Orally Once a day Active 1 tablet on an empty stomach in the morning Vital Signs Date/Time: May 17, 2017 BMI 45.07 Index Weight 230.8 lbs Height 60 in Temperature 98.0 F Cardiac Monitoring Heart Rate 80 /min Blood Pressure Diastolic 70 mm Hg Blood Pressure Systolic 128 mm Hg Results No Known Results Summary Purpose eClinicalWorks Submission
--- OUTSIDE RECORDS SUMMARY | 2018-05-07 12:40 | XMS REPORT | Clinical Summary ---
Author Author Tino Rastafarian Organization [facility] Address Unknown Phone Unavailable Care Team Providers Care Compounder Helper Name Role Phone System, Provider Not In [...] Plan / Group [employer] TEX[employer] xxxxxxxxx O [facility] Home:
--- OUTSIDE RECORDS SUMMARY | 2018-05-07 12:41 | XMS REPORT ---
Author Author [facility] Address Unknown Phone Unavailable Care Team Providers Care Commissioned Defence [employer] Officer Name Role Phone CARLOS BURTON Unavailable Unavailable Problems This patient has no known problems. Allergies, Adverse Reactions, Alerts This patient has no known allergies or adverse reactions. Medications This patient has no known medications. Results Test Description Test Time Test Comments Text Results Atomic Results Result Comments ABDOMEN-1VIEW (KUB) 2018-05-02 11:15:00 [place] [address] Patient Name: ML DANIEL MR #: [id number] : 1960 Age/Sex: 58/F Req #: [id number] [facility] Physician: CARLOS BURTON MD Ordered by: YOEL SERRANO MD Report #: [id number] Location: MED/SURG Room/Bed: [facility] Procedure: [id number] DX/ABDOMEN- 1VIEW (KUB) Exam Date: 05/02/18 Exam Time: 1100 REPORT STATUS: Signed Exam: KUB. Clinical History: Nephrolithiasis. Comparison: CT scan 05/01/2018 Findings: Frontal view of the abdomen demonstrates a nonobstructive bowel gas pattern with moderate retained stool. No urinary tract calcifications are seen. No acute bone abnormality. Impression: No urinary tract calcifications are seen. Signed by: Dr. Keenan Hernandes M.D. on 05/02/2018 11:16 AM Dictated By: KEENAN HERNANDES MD, MD [id number] Transcribed By: CONSTANTINE on 05/02/186 COPY TO: YOEL SERRANO MD CT ABDOMEN/PELVIS WO 2018-05-01 12:33:00 [place] [address] Patient Name: ML DANIEL MR #: [id number] : 1960 Age/Sex: 58/F Req #: [id number] Adm Physician: Ordered by: KIN HOLT NP Report #: [id number] Location: ER Room/Bed: Procedure: [id number] CT/CT ABDOMEN/PELVIS WO Exam Date: 05/01/18 Exam Time: 1050 REPORT STATUS: Signed EXAM: CT ABDOMEN AND PELVIS without IV CONTRAST DATE: 05/01/2018 10:14 AM Time stamp on Exam: 10:49 AM INDICATION: Bladder infection with severe flank pain and a history of renal stone COMPARISON: None TECHNIQUE: The abdomen and pelvis were scanned using a multidetector helical scanner. Coronal and sagittal reformations were obtained. Routine protocol performed. Low-dose protocol was utilized. IV Contrast: None Oral Contrast: None Radiation Dose: Total DLP 860.47 mGy*cm Estimated effective dose: DLP x 0.015 x size factor FINDINGS: LOWER THORAX: No consolidations LIVER: No masses BILIARY: The gallbladder is absent with clips in the fossa. No ductal dilatation. SPLEEN: No masses PANCREAS: No masses ADRENALS: No nodules KIDNEYS: Mild right perinephric fat stranding and prominent right collecting system. There is a tiny hyperdensity situated in the distal right ureter (axial series #2, image 78) compatible with a tiny stone. GI TRACT: No distention, wall thickening or evidence of obstruction. VESSELS: Minimal vascular calcification. PERITONEUM/RETROPERITONEUM: No free air or fluid LYMPH NODES: No lymphadenopathy REPRODUCTIVE ORGANS: Unremarkable BLADDER: Unremarkable SOFT TISSUES: Unremarkable BONES: No suspicious bone lesions. Irregularity of the left iliac wing likely represents posttraumatic changes. Mild L1-L2 joint space narrowing with adjacent bridging osteophyte. IMPRESSION: 1. Mild right perinephric fat stranding with prominent proximal ureter and collecting system. 2. Tiny distal right UVJ stone. Signed by: Dr. Sandra Diop DO on 05/01/2018 12:47 PM Dictated By: SANDRA DIOP DO 1247 Transcribed By: CONSTANTINE on 05/01/181246 COPY TO: KIN HOLT NP
== END 2018-05-05 17:15 | disposition home or self-care (01) ==
LOC: ER 08:56 → ERHOLD 14:08 → INTOOBSV 14:08 → MED/SURG 15:42
PROVIDERS: ADMIT Internal Medicine; ATTEND Internal Medicine
DX: N13.6 Pyonephrosis (principal); E66.01 Morbid (severe) obesity due to excess calories; E11.42 Type 2 diabetes mellitus with diabetic polyneuropathy; Z87.442 Personal history of urinary calculi; I10 Essential (primary) hypertension; E03.9 Hypothyroidism, unspecified; G43.909 Migraine, unspecified, not intractable, without status migrainosus; Z68.42 Body mass index [BMI] 45.0-49.9, adult; D64.9 Anemia, unspecified; B96.20 Unspecified Escherichia coli [E. coli] as the cause of diseases classified elsewhere; Z88.0 Allergy status to penicillin; Z88.8 Allergy status to other drugs, medicaments and biological substances; J30.2 Other seasonal allergic rhinitis; M54.5 Low back pain; Z79.84 Long term (current) use of oral hypoglycemic drugs
CPT/HCPCS: 36415 ×5; 74018; 74176; 80048 ×2; 80053 ×2; 81001; 82550 ×2; 82553 ×2; 82948 ×4; 83605; 83735; 84484 ×2; 85025 ×4; 87040; 87086; 87186; 99284; G0378 ×5; J0696 ×5; J1200; J1885 ×4; J2270; J2405; J2765; J7030 ×3; S0164 ×4